=== PATIENT | male | born 1945 | race Caucasian/White ===

== ENCOUNTER 2021-02-09 17:23 | Emergency (ER) | payer MEDICARE, OTHER, SELFPAY ==
--- NOTE | ~2021-02-09 | XR_ITS ---
EXAMINATION: XR HAND, LEFT CLINICAL INFORMATION: lateral view of first digit obtained to visualize location of fish hook COMPARISON: None TECHNIQUE: PA, lateral, and oblique views of the left hand. Lateral view of the thumb. FINDINGS: There is a curvilinear metallic foreign body with a barbed and situated within the palmar soft tissues at the level of the thumb proximal phalangeal shaft, consistent with a fishhook. No osseous involvement. 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 No erosions. Bone mineralization is normal. No subcutaneous gas. XR/XR hand LT min 3V IMPRESSION: Metal fishhook in the palmar soft tissues at the level of the thumb proximal phalanx. No osseous involvement.
[2021-02-09 17:32] VITALS: BP 119/68; PULSE 50; RESP 18; TEMP 36.7; O2SAT 98; BMI 25.7
--- NOTE | 2021-02-09 19:12 | ED.WOUNDLAC ---
HPI - Wound/Laceration General Chief Complaint: Wound/Laceration Stated Complaint: fish hook in thumb Time Seen by Provider: 02/09/21 19:04 Source: patient and family Mode of arrival: ambulatory Limitations: other (Lewy body dementia) History of Present Illness HPI narrative: 75-year-old male presents with fishhook to his left thumb. His family member tried to remove it however they were unable to. His last tetanus vaccine was updated 1 year ago. He does not have any other concerning symptoms at this time. Onset (ago): hour(s) (Within the hour of arrival) Extremity Location: left: hand Place: outdoors Patient tetanus UTD: Yes Context: accidental Associated symptoms: pain Related Data Allergies Allergy/AdvReac Type Severity Reaction Status Date / Time levofloxacin [From Levaquin] Allergy Anaphylaxis Verified 02/09/21 17:39 Penicillins [PCN] Allergy Rash Verified 02/09/21 17:39 epinephrine AdvReac Unknown Verified 02/09/21 17:39 Review of Systems Review of Systems: Constitutional: No Fever, No Chills ENT/Mouth: No Ear Pain, No Hoarseness, No sore throat Eyes: No Eye Pain, No Swelling, No Redness, No Foreign Body Cardiovascular: No Chest Pain, No SOB Respiratory: No Cough, No Dyspnea Gastrointestinal: No Nausea, No Vomiting, No Diarrhea, No abdominal Pain Genitourinary: No Dysuria, No Hematuria Musculoskeletal: positive left thumb pain, No Myalgias, No Joint Swelling Skin: Positive fish hook to left thumb, No Skin lacerations, No rash Neuro: No Weakness, No Numbness, No Paresthesias, No Loss of Consciousness, No Dizziness, No Headache Psych: No Anxiety/Panic, No Depression Heme/Lymph: no easy bruising, no Lymphadenopathy Endocrine: No Polyuria, No Polydipsia Yes all other systems are reviewed and are negative [facility] Past Medical History Attestation statement: The following information was validated with the patient. Source: old records reviewed Medical History Alzheimer disease Bipolar 1 disorder Dementia History of rectal bleeding HTN (hypertension) Hypercholesteremia Hyperlipidemia Surgical History History of ear, nose, and throat (ENT) surgery S/P hernia surgery Social History Social History Advance Directives: No Advance Directives Information Provided: No Physical Exam Vital Signs: Vital Signs: Last Vital Signs Temp 98.0 F 02/09/21 19:13 Pulse 52 02/09/21 19:13 Resp 16 02/09/21 19:13 BP 114/72 02/09/21 19:13 Pulse Ox 99 02/09/21 19:13 Body Mass Index 25.7 Appearance: Alert. Oriented X3. No acute distress. Eyes: Pupils equal, round and reactive to light. ENT: Pharynx normal. Neck: Normal inspection. Neck supple. CVS: Normal heart rate and rhythm. Pulses normal. Respiratory: No respiratory distress. Breath sounds normal. Abdomen: Soft and nontender. Skin: [place] to left thumb, Skin warm and dry. Normal skin color. Normal skin turgor. Extremities: No lower extremity edema. Neuro: No motor deficit. No sensory deficit. Course Course Course Narrative: 75-year-old male presents with fishhook to the left thumb. [place] was easily removed with a suture clamp, fish was easily pulled through the tissue. 2 mL of lidocaine utilized for anesthesia. Cleansed with Betadine. Patient tolerated procedure well. The fishhook was brand new and never used. Little risk for infection. Family is concerned because patient is sundowning, patient was discharged home immediately upon removal of fish hook. Family verbalized understanding of and agrees to plan of care. MDM - Wound/Laceration MDM Narrative Medical decision making narrative: [place] removal Medical Records Attestation: I reviewed the patient's medical records. Discharge Plan Discharge Clinical Impression: [place] injury to finger Patient Disposition: Home, Self-Care Instructions: Soft Tissue Foreign Body (ED), Puncture Wound (ED) Additional Instructions: We removed a fishhook from your left thumb. Monitor for signs and symptoms of infection. If infection occurs please seek medical attention. At this time no further treatment is required. Thank you for choosing this emergency department for evaluation. Please follow-up with primary care physician as needed. Return to the emergency department for any new, concerning, or worsening symptoms. Interventions: ED Discharge Assessment Last Done: 02/09/21 19:24 Discharge Date/Time: 02/09/21 19:27
[2021-02-09 19:13] VITALS: BP 114/72; PULSE 52; RESP 16; TEMP 36.7; O2SAT 99
[2021-02-09] MEDS: Lidocaine HCl 2 % MPF 5 ML VIAL SUBCUT (19:21)
--- NOTE | 2021-02-09 19:23 | PC.NURSE ---
PT FISH HOOK REMOVED FROM FINGER BY [employer]ITOR JOHANNY BAND AID APPLIED.
== END 2021-02-09 19:27 | disposition home or self-care (01) ==
LOC: HO.ED 19:24
PROVIDERS: Emergency Provider Internal Medicine
DX: S61.012A Laceration without foreign body of left thumb without damage to nail, initial encounter (principal); M79.645 Pain in left finger(s); Y28.9XXA Contact with unspecified sharp object, undetermined intent, initial encounter; Y93.9 Activity, unspecified; Y92.9 Unspecified place or not applicable; Y99.8 Other external cause status
CPT/HCPCS: 73130; 99284